=== PATIENT | female | born 1950 | race American Indian/Alaskan Native ===

== ENCOUNTER 2020-05-13 05:58 | Day surgery (SDC) | payer MEDICARE ==
[~2020-05-13 05:58] MED LIST: ceFAZolin/STERILE WATER 2 GM/20 ML SYRINGE IV NR
[2020-05-13 07:22] LABS: Hematocrit 30.5 % (30.3-42.9); Hemoglobin 9.8 gm/dl (10.1-14.3); Mean Corpuscular HGB Conc 32 % (30-34); Mean Corpuscular Volume 106 fl (79-97); Platelet Count 208 K/mm3 (140-440); Red Blood Count 2.87 M/mm3 (3.65-5.03); Red Cell Distribution Width 17.8 % (13.2-15.2)
[2020-05-13] MEDS ORDERED: ONDANSETRON 4 MG/2 ML INJ IV PRN (07:27)
[2020-05-13] MEDS ORDERED: fentaNYL 100 MCG/2 ML INJ IV PRN (07:27)
--- NOTE | 2020-05-13 07:27 | Anesthesia Day of Surgery ---
Anesthesia Day of Surgery - Day of Surgery Patient Examined: Yes Patient H&P Reviewed: Yes Patient is NPO: Yes Beta Blockers: Yes Cardiac Clearance: Yes
--- NOTE | 2020-05-13 07:30 | Anesthesia Consultation ---
Anesthesia Consult and Med Hx Date of service: 05/13/20 - Airway Anesthetic Teeth Evaluation: Good, Edentulous (Top) ROM Head & Neck: Adequate Mental/Hyoid Distance: Adequate Mallampati Class: Class II Intubation Access Assessment: Good - Pre-Operative Health Status ASA Pre-Surgery Classification: ASA3 Proposed Anesthetic Plan: General - Pulmonary Hx Smoking: No Hx Asthma: No (Unable to climb stairs. 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
[2020-05-13] MEDS ORDERED: HEPARIN 10,000 UNITS/10 ML VIAL ONE (07:31)
[2020-05-13] MEDS ORDERED: GELATIN SPONGE SIZE 100 TP ONE ×2 (07:31→09:55)
[2020-05-13] MEDS ORDERED: PROTAMINE SULFATE 50 MG/5 ML INJ ONE (07:31)
[2020-05-13] MEDS ORDERED: SODIUM CHLORIDE 0.9% 250ML 250 ML ONE (07:31)
[2020-05-13] MEDS ORDERED: THROMBIN (RECOMBINANT) 5,000 UNIT VIAL TP ONE ×2 (07:32→09:55)
[2020-05-13] MEDS ORDERED: HYDROmorphone 1 MG/1 ML INJ ONE (07:33)
[2020-05-13] MEDS ORDERED: propofoL 200 MG/20 ML VIAL IV ONE (07:33)
[2020-05-13] MEDS ORDERED: LIDOCAINE MPF (2%) 20 MG/1 ML VIAL 5 ML ONE (07:34)
[2020-05-13] MEDS: SODIUM CHLORIDE 0.9% 1000 ML 1,000 ML IV SCH ×2 (07:45→09:05)
[2020-05-13 09:04] LABS: Calcium 8.1 mg/dL (8.4-10.2)
[2020-05-13] MEDS ORDERED: HEPARIN IR ONE (09:43)
[2020-05-13] MEDS ORDERED: SODIUM CHLORIDE 0.9% IR ONE (09:43)
[2020-05-13] MEDS ORDERED: SODIUM CHLORIDE 0.9% IRR 1,000 ML BOTTLE IR ONE (09:55)
[2020-05-13] MEDS ORDERED: ONDANSETRON 4 MG/2 ML INJ ONE (11:19)
--- NOTE | 2020-05-13 11:23 | Post Operative Note ---
Date of procedure: 05/13/20 Pre-op diagnosis: ESRD Post-op diagnosis: same Procedure: Right Upper Extremity AV Graft Insertion Anesthesia: GETA Surgeon: KWADWO SOLOMON Estimated blood loss: other (25 ml) Pathology: none Condition: stable Disposition: PACU
[2020-05-13] MEDS ORDERED: HYDROcodone/ACETAMINOPHEN 5-325 MG TAB PO PRN (11:29)
--- NOTE | 2020-05-13 11:29 | Short Stay Summary ---
Short Stay Documentation Date of service: 05/13/20 - History H&P: obtained from office Past Medical History: diabetes, ESRD - Allergies and Medications Current Medications: Allergies Sulfa (Sulfonamide Antibiotics) Allergy (Intermediate, Verified 05/09/20 15:59) Rash CAUSES ITCHING AND RASH Home Medications Medication Instructions Recorded Confirmed Last Taken Type Amiodarone 200 mg PO DAILY 05/05/20 05/13/20 05/12/20 08:00 History Eliquis 5 mg PO BID 05/05/20 05/13/20 05/10/20 08:00 History Imodium A-D 1 cap PO PRN 05/05/20 05/13/20 05/12/20 22:00 History Levothyroxine 0.125 mg PO DAILY 05/05/20 05/13/20 05/13/20 05:00 History Metoprolol 50 mg PO BID 05/05/20 05/13/20 05/12/20 22:00 History Pravastatin 20 mg PO QHS 05/05/20 05/13/20 05/12/20 22:00 History Prednisone 5 mg PO DAILY 05/05/20 05/13/20 05/12/20 22:00 History Prograf 5 mg PO BID 05/05/20 05/13/20 05/12/20 22:00 History Tylenol 1,000 mg PO PRN 05/05/20 05/13/20 05/12/20 22:00 History hydrALAZINE 100 mg PO TID 05/05/20 05/13/20 05/12/20 22:00 History Active Medications Cefazolin Sodium (Ancef/Sterile Water 2 Gm/20 Ml) 2 gm IV PREOP NR Stop: 05/13/20 23:00 Fentanyl (Sublimaze) 50 mcg IV Q5MIN PRN PRN Reason: Pain , Severe (7-10) Sodium Chloride (Nacl 0.9% 1000 Ml) 1,000 mls @ 42 mls/hr IV DIRECT BECKY Last Admin: 05/13/20 09:05 Dose: 42 mls/hr Documented by: Ondansetron HCl (Zofran) 4 mg IV ONCE PRN PRN Reason: Nausea And Vomiting Stop: 05/13/20 23:59 - Physical exam General appearance: no acute distress HEENT: Atraumatic Lungs: Normal air movement Heart: Regular rate Extremities: no ischemia - Hospital course Hospital course: the patient was taken to the operating room and had a right arm av graft insertion performed. please refer to the operative note concerning details of the procedure. the patient tolerated the procedure well and was discharged home in stable condition. - Disposition Condition at discharge: Stable Disposition: DC-01 TO HOME OR SELFCARE Short Stay Discharge Plan Follow up with: PRIMARY CARE, [Primary Care Provider] - 7 Days
--- NOTE | 2020-05-13 11:53 | Operative Report ---
STAFF SURGEON: Dr. Nikos Redd. PREOPERATIVE DIAGNOSIS: End-stage renal disease. POSTOPERATIVE DIAGNOSIS: End-stage renal disease. PROCEDURE PERFORMED: Right upper extremity AV graft insertion. COMPLICATIONS: None. ESTIMATED BLOOD LOSS: 25 mL. ANESTHESIA: General. INDICATIONS FOR PROCEDURE: This is a 70-year-old female with end-stage renal disease, on hemodialysis via PermCath in need of upper extremity access. Therefore, after vein mapping performed, it was felt that the patient would benefit from AV graft insertion. The patient was explained the risks, benefits and alternatives of procedure, expressed understanding and wished to proceed. DESCRIPTION OF PROCEDURE: After appropriate consent was obtained, the patient was brought back to the operating room and placed on the operating table in supine position with the right arm extended. The patient was given appropriate medication for general anesthesia, had LMA placed without difficulty. The right arm was prepped and draped in the usual sterile fashion with ChloraPrep. Appropriate preoperative antibiotics were administered. Appropriate timeout was performed indicating correct patient, procedure, and site of procedure. I then began the operation by making a longitudinal incision near the antecubital fossa. This was carried through the subcutaneous tissue with a combination of blunt dissection and electrocautery. Dissection was continued through the bicipital aponeurosis which allowed to expose the brachial artery, which was found to be suitable for arterial inflow. This was then mobilized for appropriate distance both proximally and distally. We then proceeded to make a transverse incision near the axilla. This was carried through the subcutaneous tissue with a combination of blunt dissection and electrocautery. Dissection was then continued through the fascia overlying the axillary neurovascular bundle. Dissection was continued until the axillary vein was identified and found to be suitable for venous outflow. This was then mobilized for appropriate distance, both proximally and distally. We then proceeded to create a subcutaneous tunnel bringing through a 4-7 Propaten graft. The patient was given 5000 units of unfractionated heparin. After appropriate timeout elapsed, the graft was appropriately spatulated. Vascular clamps were placed on the brachial artery, both proximally and distally. Longitudinal arteriotomy was made with an 11 blade and extended with Plummer scissors. An end-to-side anastomosis was performed with a running 6-0 Prolene suture. Once complete flow was reestablished through the graft, we had a nice pulsatile flow. The graft was then cut to an appropriate length and spatulated. The vascular clamps were placed on the axillary vein, both proximally and distally. Longitudinal venotomy was performed and extended with Plummer scissors. Then, an end-to-side anastomosis was performed with a running 5-0 Prolene suture. Once complete flow was reestablished through the graft, which had a nice palpable thrill, we then looked to obtain hemostasis along the suture lines, which we obtained with hemostatic agents. Once we were satisfied with hemostasis, we then proceeded to close the wounds with a deep subcutaneous layer with interrupted 3-0 PDS. Skin was approximated with rachel. Appropriate dressing was placed. The patient tolerated the procedure well, emerged from the general anesthesia, had LMA removed, and was sent to recovery in stable condition. All the sponges, instrument and needle counts were correct at completion of the operation. JOB# [id number] MIKA/PILAR
--- NOTE | 2020-05-13 12:42 | Post Anesthesia Evaluation ---
- Post Anesthesia Evaluation Patient Participated: Yes Airway Patent: Yes Stable Respiratory Function: Yes Nausea/Vomiting: No Temp > 96.8F: Yes Pain Manageable: Yes Adequeate Hydration: Yes Anesthesia Complications: No Block Receding Appropriately: Not Applicable Patient on Ventilator: No
[2020-05-13 18:00] VITALS: BP 138/58
== END 2020-05-13 05:59 | disposition home or self-care (01) ==
LOC: OR 05:58
PROVIDERS: ATTEND Surgery Vascular Surgery
DX: I13.2 Hypertensive heart and chronic kidney disease with heart failure and with stage 5 chronic kidney disease, or end stage renal disease (principal); N18.6 End stage renal disease; I50.9 Heart failure, unspecified; I48.91 Unspecified atrial fibrillation; J44.9 Chronic obstructive pulmonary disease, unspecified; E78.5 Hyperlipidemia, unspecified; D64.9 Anemia, unspecified; G47.30 Sleep apnea, unspecified; E89.0 Postprocedural hypothyroidism; Z90.710 Acquired absence of both cervix and uterus; Z87.442 Personal history of urinary calculi; Z94.0 Kidney transplant status; Z98.890 Other specified postprocedural states; Z87.440 Personal history of urinary (tract) infections; Z88.2 Allergy status to sulfonamides; Z79.899 Other long term (current) drug therapy; Z80.8 Family history of malignant neoplasm of other organs or systems; Z82.49 Family history of ischemic heart disease and other diseases of the circulatory system
CPT/HCPCS: 36415; 36830; 80048; 85027; A4649; C1768; J0690; J1170; J1644; J2405; J2704; J2720; J7030; J7040; J7050

== ENCOUNTER 2020-06-24 06:03 | Day surgery (SDC) | payer MEDICARE ==
[~2020-06-24 06:03] MED LIST changes: +SODIUM CHLORIDE 0.9% 1000 ML 1,000 ML IV SCH; -ceFAZolin/STERILE WATER 2 GM/20 ML SYRINGE IV NR; +ceFAZolin/Water 2 GM/20 ML 2 GM/20 ML SYRINGE IV NR
[2020-06-24 07:31] LABS: Hematocrit 30.8 % (30.3-42.9); Hemoglobin 10.1 gm/dl (10.1-14.3); Mean Corpuscular HGB Conc 33 % (30-34); Mean Corpuscular Volume 108 fl (79-97); Platelet Count 256 K/mm3 (140-440); Red Blood Count 2.87 M/mm3 (3.65-5.03); Red Cell Distribution Width 19.1 % (13.2-15.2)
--- NOTE | 2020-06-24 07:33 | Anesthesia Consultation ---
Anesthesia Consult and Med Hx Date of service: 06/24/20 - Airway Anesthetic Teeth Evaluation: Edentulous (upper) ROM Head & Neck: Inadequate Mental/Hyoid Distance: Adequate Mallampati Class: Class II Intubation Access Assessment: Probably Good (previous easy LMA 3) - Pulmonary Exam CTA: Yes - Cardiac Exam Cardiac Exam: No Murmur - Pre-Operative Health Status ASA Pre-Surgery Classification: ASA3 Proposed Anesthetic Plan: General - Pulmonary Hx Smoking: No Hx Respiratory Symptoms: No Hx Sleep Apnea: Yes (compliant with CPAP) - Cardiovascular System Hx Hypertension: Yes (took antihypertensives this morning) Hx Heart Attack/AMI: No (<4mets functional capacity; EF 35%, no ischemia on stress test 10/2019) Hx Percutaneous Transluminal Coronary Angioplasty (PTCA): No Hx Cardia Arrhythmia: Yes (a-fib, no longer on eliquis) Hx Pacemaker: No Hx Internal Defibrillator: No - Central Nervous System CVA: No Hx Back Pain: Yes Hx Psychiatric Problems: No - Gastrointestinal Hx Gastroesophageal Reflux Disease: No - Endocrine Hx End Stage Renal Disease: Yes (last HD 06/23/20) Hx Liver Disease: No Hx Insulin Dependent Diabetes: No Hx Non-Insulin Dependent Diabetes: No Hx Hypothyroidism: Yes - Hematic Hx Anemia: Yes - Other Systems Hx Cancer: Yes Hx Obesity: No - Additional Comments Anesthesia Medical History Comments: No hx anesthetic complications. No significant change in health since last surgery 05/27/20.
--- NOTE | 2020-06-24 07:34 | Anesthesia Day of Surgery ---
Anesthesia Day of Surgery - Day of Surgery Patient Examined: Yes Patient H&P Reviewed: Yes Patient is NPO: Yes Beta Blockers: Yes (metoprolol this morning)
[2020-06-24] MEDS ORDERED: HEPARIN 10,000 UNITS/10 ML VIAL ONE (07:35)
[2020-06-24] MEDS ORDERED: BUPIVACAINE/PF (0.5%) 5 MG/1 ML 10 ML VIAL INFILTRATI ONE ×2 (07:35→09:04)
[2020-06-24] MEDS ORDERED: SODIUM CHLORIDE 0.9% 250ML 250 ML ONE (07:36)
[2020-06-24] MEDS ORDERED: SODIUM CHLORIDE 0.9% 500 ML 500 ML ONE (07:36)
[2020-06-24] MEDS ORDERED: rifAMPin 600 MG VIAL ONE (07:36)
[2020-06-24] MEDS ORDERED: LIDOCAINE MPF (2%) 20 MG/1 ML VIAL 5 ML ONE (07:46)
[2020-06-24] MEDS ORDERED: fentaNYL 100 MCG/2 ML INJ ONE (07:46)
[2020-06-24] MEDS ORDERED: ONDANSETRON 4 MG/2 ML INJ ONE (07:46)
[2020-06-24] MEDS ORDERED: propofoL 200 MG/20 ML VIAL IV ONE (07:46)
[2020-06-24 07:50] LABS: Calcium 8.1 mg/dL (8.4-10.2)
[2020-06-24] MEDS ORDERED: HEPARIN 10,000 UNITS/10 ML VIAL IR ONE ×2 (09:04→13:00)
[2020-06-24] MEDS ORDERED: SODIUM CHLORIDE 0.9% 500 ML IVPB IRRIGATION ONE (09:05)
[2020-06-24] MEDS ORDERED: SODIUM CHLORIDE 0.9% IRR 1,500 ML BOTTLE IR ONE (09:06)
[2020-06-24] MEDS ORDERED: rifAMPin 600 MG VIAL IV ONE (09:28)
[2020-06-24] MEDS ORDERED: SODIUM CHLORIDE 0.9% 250 ML IVPB IR ONE (09:29)
[2020-06-24] MEDS ORDERED: GLYCOPYRROLATE 0.4 MG/2 ML INJ ONE (10:19)
[2020-06-24] MEDS ORDERED: ePHEDrine SULFATE 50 MG/1 ML INJ ONE (10:24)
--- NOTE | 2020-06-24 11:03 | Short Stay Summary ---
Short Stay Documentation Date of service: 06/24/20 Narrative H&P: See H&P - History H&P: obtained from office - Allergies and Medications Current Medications: Allergies Sulfa (Sulfonamide Antibiotics) Allergy (Intermediate, Verified 05/09/20 15:59) Rash CAUSES ITCHING AND RASH Home Medications Medication Instructions Recorded Confirmed Last Taken Type Amiodarone 200 mg PO DAILY 05/05/20 05/27/20 06/24/20 05:00 History Imodium A-D 1 cap PO PRN 05/05/20 05/27/20 05/12/20 22:00 History Levothyroxine 0.125 mg PO DAILY 05/05/20 05/27/20 06/24/20 05:00 History Metoprolol 50 mg PO BID 05/05/20 05/27/20 06/24/20 05:00 History Pravastatin 20 mg PO QHS 05/05/20 05/27/20 06/23/20 20:00 History Prednisone 5 mg PO DAILY 05/05/20 05/27/20 06/23/20 09:00 History Prograf 5 mg PO BID 05/05/20 05/27/20 06/23/20 20:00 History Tylenol 1,000 mg PO PRN 05/05/20 05/27/20 06/23/20 09:00 History hydrALAZINE 100 mg PO TID 05/05/20 05/27/20 06/24/20 05:00 History RX: HYDROcodone/APAP 5-325 [[place] 1 each PO Q6H PRN #24 tablet 05/13/20 05/27/20 Unknown Rx 5-325 mg TAB] HYDROcodone/APAP 7.5-325 [[place] 1 each PO Q6HR PRN #40 tablet 05/27/20 06/23/20 09:00 Rx 7.5/325] Active Medications Cefazolin Sodium (Ancef/Sterile Water 2 Gm/20 Ml) 2 gm in 20 mls @ 80 mls/hr IV PREOP NR; Protocol Stop: 06/24/20 23:59 Sodium Chloride (Nacl 0.9% 1000 Ml) 1,000 mls @ 42 mls/hr IV DIRECT BECKY Stop: 06/24/20 23:59 Last Admin: 06/24/20 07:40 Dose: 42 mls/hr Documented by: - Brief post op/procedure progress note Date of procedure: 06/24/20 Pre-op diagnosis: Complications of Dialysis Access Post-op diagnosis: same Procedure: 1. Partial Excision of Left Axillary Artery to Axillary Vein Arteriovenous Graft 2. Creation of Left Axillary Artery to Axillary Vein Arteriovenous Graft with 6 mm Bovine Artegraft Anesthesia: GETA Surgeon: ELIZABETH REICH Estimated blood loss: 50-100ml Pathology: list (Portion of existing left arm arteriovenous graft) Specimen disposition: discarded Condition: stable - Disposition Condition at discharge: Good Disposition: DC-01 TO HOME OR SELFCARE Short Stay Discharge Plan Activity: other (No heavy lifting with left arm for 2 weeks.) Wound: open to air, keep clean and dry, other (Okay to wash the wound with soap and water but do not soak in water for 2 weeks.) Follow up with: ELIZABETH REICH MD [Staff Physician] - 14 Days Prescriptions: HYDROcodone/APAP 5-325 [[place] 5/325] 1 each PO Q6HR PRN #40 tablet PRN Reason: Pain
--- NOTE | 2020-06-24 11:04 | Operative Report ---
Operative Report Operative Report: Date of Procedure: 06/24/2020 Pre-operative Diagnosis: Complications of Dialysis Access Post-operative Diagnosis: Same Procedure(s): 1. Partial Excision of Left Axillary Artery to Axillary Vein Arteriovenous Graft 2. Creation of Left Axillary Artery to Axillary Vein Arteriovenous Graft with 6 mm Bovine Artegraft Surgeon: Anish Aguilar M.D. Physical Therapy Assistant Instructor: None Anesthesia: Gen. Endotracheal Anesthesia EBL: 50 mL Counts: Correct Complications: None Condition: Stable Findings: Successful creation of left arm AV graft with palpable thrill within the case. Specimen: None Indication: The patient is a 70-year-old female with a history of end-stage renal disease who is currently on hemodialysis through a right internal jugular permacath. She had a creation of a right arm arteriovenous graft that was removed secondary to steal syndrome and is in need of permanent access. She had a previous left arm axillary artery to axillary vein loop graft that she used for dialysis prior to receiving a renal transplant. A venogram revealed that the venous outflow of the graft was through the basilic vein and that her axillary vein was patent and adequate for use of the venous anastomosis for her current graft. The plan is for creation of a left axillary artery to axillary vein arteriovenous loop graft. She was given the risk, benefits, and alternative procedures and consented to the procedure. Description of Procedure: The patient was brought to the operating room and laid in supine position. After general endotracheal anesthesia was achieved the left arm was prepped and draped in normal sterile fashion. A longitudinal incision was created on the medial aspect of the arm and carried down to the axillary artery using sharp dissection. The artery was dissected circumferentially and controlled with 2 vessel loops. I then dissected the axillary vein, through the same incision, pr oximal to the axillary artery dissection and controlled this with a single vessel loop. I used a curved Hayde-Wick tunneler to tunnel distally, and a subcutaneous plane on the medial aspect of the arm, towards the antecubital crease curving towards the lateral aspect of the arm and made a small counterincision. I pulled the 6 mm bovine Artegraft through this counterincision and out through the axillary incision for the arterial limb. Prior to pulling the venous outflow limb through its tunnel I made an incision over the previous graft on the lateral aspect of the upper arm. I clamped the g raft and transected it and ligated with a 2-0 silk suture. I then identified the graft near the venous anastomosis and clamped the graft near the vein and transected and ligated with a 2-0 silk suture. I was able to then pull this portion of the graft free from the tunnel so that the new graft would not tunnel over the previous graft. I then used the Hayde-Lamonte tunneler to tunnel from the axillary incision beginning laterally, in a superficial plane, and a medial direction towards the counterincision and then pulled the remainder of the graft through the tunnel for the venous outflow portion of the loop. I clamped the venous outflow of the loop with the angled DeBakey clamp and infused heparinized saline into the arterial inflow of the graft to ensure that the graft was not twisted or kinked. I systemically heparinized the patient with 3000 units of heparin IV and after this circulated for 3 minutes I clamped the axillary artery with angled DeBakey clamps and created an arteriotomy using 11 blade and Plummer scissors. I then created an end-to-side anastomosis using a 6-0 Prolene in running fashion. After completing the anastomosis I released the clamps, allowing flow into the graft which had adequate arterial flow and then I reclamped the graft near the arterial anastomosis. I then cut the venous portion of the graft to length and beveled and then controlled the axillary vein with a Satinsky clamp. I created a anatomy using 11 blade Plummer scissors and the greater end-to-side anastomosis using a 6-0 Prolene in running fashion. Prior to completing the anastomosis as well as the vein as well as the arterial inflow of the graft and then reclamped the graft vein and flushed venotomy with heparinized saline. I then completed the anastomosis and removed all clamps all ow flow into the graft was an excellent thrill. Hemostasis was achieved with a combination of clot and direct pressure. Once hemostasis was achieved all incisions were anesthetized with 0.5% Marcaine and then closed in 2 layers using a 3-0 Vicryl in a running fashion in the deep dermal layers and a 4-0 Monocryl in running fashion in the subcuticular layers and then dressed with Dermabond. The patient tolerated the procedure well. All sponge, needle, and instrument counts were correct. The patient was taken to recovery in stable condition.
[2020-06-24] MEDS ORDERED: HYDROcodone/ACETAMINOPHEN 5-325 MG TAB PO PRN (12:13)
[2020-06-24] MEDS ORDERED: HEPARIN 10,000 UNITS/10 ML VIAL IV ONE (12:45)
[2020-06-24] MEDS ORDERED: HEPARIN 5,000 UNIT/1 ML VIAL ONE (12:53)
[2020-06-24] MEDS ORDERED: HEPARIN 5,000 UNIT/1 ML VIAL IR ONE (13:00)
[2020-06-24 14:07] VITALS: BP 143/64
--- NOTE | 2020-06-24 14:12 | Post Anesthesia Evaluation ---
- Post Anesthesia Evaluation Patient Participated: Yes Airway Patent: Yes Stable Respiratory Function: Yes Nausea/Vomiting: No Temp > 96.8F: Yes Pain Manageable: Yes Adequeate Hydration: Yes Anesthesia Complications: No
== END 2020-06-24 06:04 | disposition home or self-care (01) ==
LOC: OR 06:03
PROVIDERS: ATTEND Surgery Vascular Surgery
DX: T82.898A Other specified complication of vascular prosthetic devices, implants and grafts, initial encounter (principal); I13.2 Hypertensive heart and chronic kidney disease with heart failure and with stage 5 chronic kidney disease, or end stage renal disease; N18.6 End stage renal disease; I50.9 Heart failure, unspecified; I42.9 Cardiomyopathy, unspecified; E78.00 Pure hypercholesterolemia, unspecified; I48.91 Unspecified atrial fibrillation; J44.9 Chronic obstructive pulmonary disease, unspecified; G47.30 Sleep apnea, unspecified; K21.9 Gastro-esophageal reflux disease without esophagitis; M19.90 Unspecified osteoarthritis, unspecified site; E03.9 Hypothyroidism, unspecified; D64.9 Anemia, unspecified; Z85.850 Personal history of malignant neoplasm of thyroid; Z88.2 Allergy status to sulfonamides; Z79.899 Other long term (current) drug therapy; Z90.710 Acquired absence of both cervix and uterus; Z98.890 Other specified postprocedural states; Z87.442 Personal history of urinary calculi; Z87.440 Personal history of urinary (tract) infections; Z94.0 Kidney transplant status; Y83.8 Other surgical procedures as the cause of abnormal reaction of the patient, or of later complication, without mention of misadventure at the time of the procedure; Y92.89 Other specified places as the place of occurrence of the external cause
CPT/HCPCS: 36415; 36832; 80048; 85027; C1768; J0690; J1644; J2405; J2704; J3010; J3490; J7030; J7040; J7050